=== PATIENT | male | born 1975 | race Caucasian/White ===

== ENCOUNTER 2018-08-30 20:16 | Emergency (ER) | payer MEDICAID, OTHER ==
[~2018-08-30] VITALS: Ht 198.1 cm; Wt 117.9 kg
[~2018-08-30 20:16] MED LIST: HYDR25TA4 PO
[2018-08-30 21:23] LABS: Basophils # (auto) 0.1 uL; Basophils % (auto) 0.6 % (0.0-2.0); Eosinophils # (auto) 0.2 uL; Eosinophils % (auto) 1.3 % (0.0-7.0); Hematocrit 51.4 % (41.0-53.0); Hemoglobin 16.7 g/dL (13.5-17.5); Lymphocytes # (auto) 2.3 uL; Lymphocytes % (auto) 12.7 % (10.0-50.0); Mean Corpuscular Hemoglobin 28.1 pg (28.0-32.0); Mean Corpuscular Hgb Conc. 32.5 g/dL (32.0-36.0); Mean Corpuscular Volume 86.4 fL (80.0-100.0); Monocytes # (auto) 1.5 uL; Monocytes % (auto) 8.3 % (0.0-12.0); Neutrophils # (auto) 13.6 uL; Neutrophils % (auto) 77.1 % (37.0-80.0); Platelet Count (auto) 329 10^3/uL (140-450); Red Blood Cells 5.95 10^6/uL (4.5-5.90); Red Cell Distribution Width 14.1 % (11.8-14.3); White Blood Cell 17.7 10^3/uL (4.4-10.8)
[2018-08-30 21:36] LABS: INR 0.95 (0.9-1.15); Partial Thromboplastin Time 23.6 sec (23.64-32.05)
[2018-08-30 21:42] LABS: Albumin 3.2 g/dL (3.4-5.0); Calcium 8.5 mg/dL (8.5-10.1); Potassium 4.2 mmol/L (3.5-5.1)
[2018-08-30 21:45] LABS: Bilirubin, Total 0.4 mg/dL (0.2-1.0)
[2018-08-30] MEDS ORDERED: VANCOMYCIN 1GM/250ML 250 ML IV ONE (22:15)
[2018-08-30] MEDS ORDERED: HYDROmorphone HCL 2 MG/ML VL IV ONE (22:15)
[2018-08-30] MEDS ORDERED: ONDANSETRON HCL 4 MG/2 ML VIAL IV ONE (22:15)
[2018-08-30] MEDS ORDERED: PIPERACILLIN-TAZOB 3.375GM 100 ML IV ONE (22:15)
[2018-08-30] MEDS ORDERED: IOHEXOL 350 MG/ML 100ML IJ ONE (22:40)
[2018-08-31 00:41] VITALS: BP 145/103
== END 2018-08-31 00:55 | disposition short-term general hospital (02) ==
LOC: ER 20:21
DX: L03.113 Cellulitis of right upper limb (principal); M79.A11 Nontraumatic compartment syndrome of right upper extremity; F15.10 Other stimulant abuse, uncomplicated; I10 Essential (primary) hypertension
CPT/HCPCS: 36415; 73200; 73201; 80053; 85025; 85610; 85730; 87040; 96365; 96367; 96375; 99285; J1170; J2405; J2543; Q9967; 96368

== ENCOUNTER 2018-09-23 09:57 | Emergency (ER) | payer MEDICAID ==
[~2018-09-23] VITALS: Ht 198.1 cm; Wt 120.2 kg
[~2018-09-23 09:57] MED LIST changes: +AMOX-263 PO; +ASCO500T11 PO; +CAR125T PO; +FER325T PO; +FLUC200T50 PO; +FURO40TA4 PO; -HYDR25TA4 PO; +LISI-275 PO; +METF500T PO; +MULTTAB99 PO; +POTA10TA51 PO
[2018-09-23] MEDS ORDERED: SODIUM CHLORIDE 0.9% 1,000 ML IV ONE (10:19)
[2018-09-23 11:34] VITALS: BP 95/55
== END 2018-09-23 13:00 | disposition home or self-care (01) ==
LOC: ER 10:02
DX: S50.911D Unspecified superficial injury of right forearm, subsequent encounter (principal); I11.0 Hypertensive heart disease with heart failure; I50.9 Heart failure, unspecified; E11.9 Type 2 diabetes mellitus without complications; F15.10 Other stimulant abuse, uncomplicated; Z48.01 Encounter for change or removal of surgical wound dressing; X58.XXXD Exposure to other specified factors, subsequent encounter
CPT/HCPCS: 99283; J7030

== ENCOUNTER 2018-11-02 04:18 | Inpatient (IN) | payer MEDICAID | END 2018-11-04 15:39 | disposition E | LOC: ER 04:18 → OVERFLOW 04:19 → DOU IN ICU 10:35 → ICU WEST 15:29 | PROC: 0BH17EZ Insertion of Endotracheal Airway into Trachea, Via Natural or Artificial Opening (ICD-10-PCS; principal; 2018-11-02 15:03) | PROC: 0DJD0ZZ Inspection of Lower Intestinal Tract, Open Approach (ICD-10-PCS; 2018-11-02 15:03) | DX: K63.1 Perforation of intestine (nontraumatic) (principal); A41.89 Other specified sepsis; J96.90 Respiratory failure, unspecified, unspecified whether with hypoxia or hypercapnia; E11.8 Type 2 diabetes mellitus with unspecified complications; E11.65 Type 2 diabetes mellitus with hyperglycemia; N17.0 Acute kidney failure with tubular necrosis; D64.89 Other specified anemias; F15.10 Other stimulant abuse, uncomplicated; F12.10 Cannabis abuse, uncomplicated; D64.9 Anemia, unspecified; I50.9 Heart failure, unspecified; I11.0 Hypertensive heart disease with heart failure; R57.9 Shock, unspecified; E87.2 Acidosis ==